=== PATIENT | female | born 1955 | race Caucasian/White ===

== ENCOUNTER 2018-09-29 08:48 | Day surgery (SDC) | payer OTHER ==
[2018-09-29] MEDS ORDERED: SOD CHLORIDE 0.9% 1,000 ML IV (10:00)
[2018-09-29] MEDS ORDERED: CEFAZOLIN 2 GM/50 ML (PMX) 50 ML IVPB (10:00)
[2018-09-29] MEDS ORDERED: BUPIVACAINE 0.25% (MPF) 30 ML INJ (10:10)
[2018-09-29] MEDS: BUPIVACAINE 0.25% (STERILE-PAK) 30 ML INJ INJ (11:00)
[2018-09-29] MEDS ORDERED: FENTAnyl 50 MCG/ML VIAL (11:52)
[2018-09-29] MEDS ORDERED: CEFAZOLIN 1 GM INJ (12:19)
[2018-09-29] MEDS ORDERED: SUCCINYLCHOLINE CHLORIDE 100 MG/5 ML SYG IV (12:19)
[2018-09-29] MEDS ORDERED: PROPOFOL 20 ML (12:19)
[2018-09-29] MEDS ORDERED: ROCURONIUM 50 MG INJ (12:19)
[2018-09-29] MEDS ORDERED: SUGAMMADEX SODIUM 200 MG/2 ML VIAL IV (12:19)
[2018-09-29] MEDS ORDERED: LIDOCAINE 100 MG SYRINGE (12:19)
[2018-09-29] MEDS ORDERED: PROVENTIL HFA 6.7GM INHALER (12:24)
[2018-09-29] MEDS ORDERED: HYDROCODONE/APAP (5/325) TAB PO (12:30)
== END 2018-09-29 13:40 | disposition home or self-care (01) ==
LOC: SDS 08:48
DX: D17.1 Benign lipomatous neoplasm of skin and subcutaneous tissue of trunk (principal); E03.9 Hypothyroidism, unspecified
CPT/HCPCS: 14001; 88307